=== PATIENT | female | born 1975 | race Caucasian/White ===

== ENCOUNTER → 2020-08-02 10:49 | Outpatient (CLI) | payer BC, SELFPAY ==
--- NOTE | ~2020-08-02 | XR_ITS ---
XR lumbar spine 2-3V DATE: 08/02/2020 11:41 INDICATION: Low back pain TECHNIQUE: AP, lateral, coned lateral lumbosacral views COMPARISON: None FINDINGS: The lumbar vertebrae are normally aligned. No fracture or bone destruction or spondylolisth esis. The lumbar included and included lower thoracic pedicles are intact. Intervertebral disc spaces are relatively well preserved. Sacroiliac joints are intact. IMPRESSION: No significant abnormality Reviewed, dictated and finalized at location A. IMPRESSION: No significant abnormality
--- NOTE | ~2020-08-02 | XR_ITS ---
EXAMINATION: XR knee LT min 4V DATE: 08/02/2020 11:41 INDICATION: Left knee pain. TECHNIQUE: 4 views of left knee were obtained. COMPARISON: None. FINDINGS: Bone alignment is normal. No fracture. There is mild tricompartmental osteoarthritis charac terized by tiny marginal osteophytes. No knee joint effusion. IMPRESSION: 1. Mild left knee osteoarthritis. Reviewed, dictated and finalized at location A.
--- NOTE | ~2020-08-02 | XR_ITS ---
EXAMINATION: XR hip LT min 2V DATE: 08/02/2020 11:41 INDICATION: Left hip pain. TECHNIQUE: 2 views of left hip were obtained. COMPARISON: None. FINDINGS: Bone alignment is normal. No fracture. Left hip joint space is normal. IMPRESSION: 1. Normal left hip. Reviewed, dictated and finalized at location A. IMPRESSION: 1. Normal left hip.
== END ==
PROVIDERS: PCP Chiropractor; Visit Provider Chiropractor
DX: M17.12 Unilateral primary osteoarthritis, left knee (principal); M25.552 Pain in left hip; M54.5 Low back pain
CPT/HCPCS: 72100; 73502; 73564